=== PATIENT | female | born 1955 | race Caucasian/White ===

== ENCOUNTER → 2018-08-02 | Outpatient (CLI) | payer OTHER ==
[2018-08-02 08:27] LABS: HEMATOCRIT 43.7 % (37.0-47.0); HEMOGLOBIN 14.7 gm/dL (12.0-15.0); MCHC 33.7 g/dL (28.0-37.0); RBC 4.91 mil/uL (4.20-5.00); RDW 13.9 % (10.5-14.5); WBC 4.3 thou/uL (4.0-11.0)
[2018-08-02 08:41] LABS: ALBUMIN 4.3 g/dL (3.4-5.0); CALCIUM 9.1 mg/dL (8.5-10.1); CREATININE 0.7 mg/dL (0.6-1.0); POTASSIUM 4.2 mmol/L (3.5-5.1); TOTAL BILIRUBIN 0.5 mg/dL (<0.1-1.0); TOTAL PROTEIN 7.3 g/dL (6.4-8.2)
== END ==
LOC: CAT 08:00
PROVIDERS: Internal Medicine Cardiovascular Disease
DX: I48.91 Unspecified atrial fibrillation (principal); I25.10 Atherosclerotic heart disease of native coronary artery without angina pectoris

== ENCOUNTER 2018-08-20 06:37 | Observation (INO) | payer OTHER ==
[~2018-08-20] VITALS: Ht 157.5 cm; Wt 48.1 kg
[2018-08-20 07:07] VITALS: BP 130/85
[2018-08-20] MEDS ORDERED: ASPIR 8181 MG PO (07:47)
[2018-08-20] MEDS ORDERED: VITAMIN D3400 UNIT PO (07:47)
[2018-08-20] MEDS ORDERED: FLECAINIDE ACET50 M1 PO (07:48)
[2018-08-20] MEDS ORDERED: CARDIZEM CD120 MG PO (07:48)
[2018-08-20] MEDS ORDERED: PRADAXA150 MG PO (07:50)
[2018-08-20 14:00] VITALS: BP 133/84
[2018-08-20 16:00] VITALS: BP 141/90
[2018-08-20 16:20] VITALS: BP 132/86
--- NOTE | 2018-08-20 19:32 | NUR ---
PT ARRIVED TO UNIT APPROX 1400. PT A&OX4, BEDREST FOR 6HRS, UP AT 1700. BOTH GROIN SITES WERE C/D/I AND PT'S SHAY REMOVED AT 1700. PT UP TO BATHROOM WITH STEADY GAIT. PT WAS SINUS RHYTHM ON TELEMETRY AND VITALS WNL. AT SHIFT CHANGE RIGHT GROIN SITE HAD FRESH BLOOD ON DRESSING PRESSURE APPLIED AND NEW DRESSING PLACED ON SITE. PT PUT BACK ON BEDREST WITH SENIOR ASSET MANAGER NURSE STARTING Q15 SITE CHECKS.
[2018-08-20 20:15] VITALS: BP 125/79
[2018-08-21 00:44] VITALS: BP 121/79
--- NOTE | 2018-08-21 02:28 | NUR ---
ASSESSMENT DOCUMENTED.PT BEEN RESING IN NO ACUTE DISTRESS.A/P ABLATION.EMRE GROIN DRESSING CDI.NO ACTIVE BLEEDING NOTED.VSS.PULSES PRESENT 2+.ON MONITOR NSR.PT DENIES ANY NEEDS AT THIS TIME.PT TO DISCHARGE TODAY.WILL CONT TO MONITOR PER POC.
[2018-08-21 04:20] VITALS: BP 125/76
[2018-08-21 08:12] VITALS: BP 128/93
[2018-08-21 10:47] VITALS: BP 128/93
--- NOTE | 2018-08-21 11:00 | NUR ---
ASSESSMENT DOCUMENTED. PT ALERT AND ORIENTED. VSS. DENIED HAVING PAIN OR DISCOMFORT. NSR ON TELI. RIGHT AND LEFT GROIN INCISION C/DI. NO HEMATOMA NOTED. SEEN BY DR. HELM ORDERS GIVEN TO DISCHARGE PT TO HOME. DISCHARGE INSTRUCTIONS GIVEN TO PT. PT VERBERLISED UNDERSTANDING. PT LEFT THE FACILITY ACCOMPANIED BY THE .
== END 2018-08-21 11:02 | disposition home or self-care (01) ==
LOC: CATH 06:37 → 2N 13:58 → CATH 14:14 → ENTRNSPT 08-21 10:55 → EDTRNSPTSTS 08-21 10:57 → 2N 08-21 11:02
PROVIDERS: ADMIT Internal Medicine Cardiovascular Disease
DX: I48.0 Paroxysmal atrial fibrillation (principal); E78.5 Hyperlipidemia, unspecified; Z90.89 Acquired absence of other organs; Z90.710 Acquired absence of both cervix and uterus
CPT/HCPCS: 62110; 62900; 65020; 65040; 70005

== ENCOUNTER → 2021-06-29 | Outpatient (CLI) | payer OTHER ==
[~2021-06-29] MED LIST: ASPIR 8181 MG PO; CARDIZEM CD120 MG PO; FLECAINIDE ACET50 M1 PO; PRADAXA150 MG PO; VITAMIN D3400 UNIT PO
== END | disposition home or self-care (01) ==
LOC: CATH 07:29
PROVIDERS: ATTEND Internal Medicine Cardiovascular Disease
DX: I48.91 Unspecified atrial fibrillation (principal); Z98.890 Other specified postprocedural states; Z79.899 Other long term (current) drug therapy; Z79.82 Long term (current) use of aspirin; Z79.01 Long term (current) use of anticoagulants